=== PATIENT | female | born 1990 | race Caucasian/White ===

== ENCOUNTER 2016-10-14 14:34 | Emergency (ER) | END 2016-10-14 15:19 | disposition home or self-care (01) | DX: H92.02 Otalgia, left ear (principal) ==

== ENCOUNTER 2017-07-21 05:49 | Day surgery (SDC) | END 2017-07-21 10:23 | disposition home or self-care (01) ==

== ENCOUNTER 2017-10-04 08:10 | Day surgery (SDC) | END 2017-10-04 14:00 | disposition home or self-care (01) ==